=== PATIENT | male | born 1950 | race Caucasian/White ===

== ENCOUNTER 2018-10-24 11:29 | Inpatient (IN) ==
[2018-10-24] MEDS ORDERED: Ondansetron 4 MG/2 ML VIAL IVP PRN (13:12)
[2018-10-24] MEDS ORDERED: *HR* LORazepam 2 MG/ML VIAL IVP PRN (14:19)
--- NOTE | 2018-10-24 14:31 | Internal Med History&Physical ---
Date of Encounter: 10/24/18 Time of Encounter: 14:30 Internal Medicine - H&P: HPI Chief complaint: confusion Admitted From: Home Plans for Post Hospital Care: Home History of present illness: Mr. Schofield is a 67 year old male with history of HTN, and lewy body dementia, hypothyroidism, autonomic instability who was transferred to the hospital from [place] accompanied by his mother and sister due to confusion and unre sponsiveness. History was obtained from the patient and his family. Patient had already improved at [facility]. He used to leave in [place] with his daughter however he was visiting his mother when he became unresponsive in the morning. His mother felt that he was warm however she did not check his temperature. She also noticed decreased oral intake over the past few days. He has fluctuation in his cognition as per the mother and the sister. Patient was recently hospitalized due to multiple falls and was recently discharged from rehabilitation. He denied any chest pain, shortness of breath or palpitation. He has no fever, chills or night sweats. He denied any dysuria, hematuria or polyuria. He is to follow with urology, cardiology and neurology at his home town. At [place], Patient was hypertensive but HDS. Afebrile. His blood work revealed leukocytosis of 11.3, Cr 1.8, normal lactic acid, calcium 10.4, troponin 0.05. UA was positive for WBC but negative for leukocyte esterase and urine nitrates. Chest x-ray was negative for acute abnormality. Past Med Surg Social Fam HX - Past Medical History Medical history: arthritis, dementia, hypertension, thyroid disease, other Additional medical history: PARKINSONS, Lewy body dementia Psychiatric history: anxiety - Past Surgical History Additional surgical history: rt and lt knee replacements - Social History Smoking Status: Never smoker Smokeless Tobacco Status: No Alcohol use: none Drug use: none - Family History Father Living Status: Cause of : [place] Hx Family Cardiac Disorders: Yes ([place]) Hx Family Respiratory Disorders: Yes (COPD) Mother Living Status: Still Living Hx Family Cardiac Disorders: Yes (CAD, stenosis) - Additional Family History Additional family history: Reviewed and noncontributory Internal Medicine - H&P: Meds Calcium Carbonate/Vitamin D3 [Calcium 500 + Vit D 200 Caplet] 1 each PO DAILY 10/29/17 [History] Levothyroxine [Synthroid] 125 mcg PO DAILY 10/29/17 [History] Lisinopril [Zestril] 5 mg PO DAILY 10/29/17 [History] Memantine [Namenda] 10 mg PO DAILY 10/29/17 [History] Tamsulosin HCl [Flomax] 0.4 mg PO DAILY 10/29/17 [History] Loratadine [Claritin] 10 mg PO DAILY 10/24/18 [History] Melatonin [Melatin] 3 mg PO HS 10/24/18 [History] Quetiapine Fumarate [SEROquel] 25 mg PO HS 10/24/18 [History] Allergy/AdvReac Type Severity Reaction Status Date / Time codeine Allergy Hives Verified 10/24/18 08:59 oxycodone Allergy Hives Verified 10/24/18 08:59 pentazocine [From Talwin] Allergy Hives Verified 10/24/18 08:59 All Systems PM: A 10-system review of systems was performed and is negative for pertinent findings except as documented above in the HPI. - Constitutional Vitals: Temp Pulse Resp BP Pulse Ox 97.8 F 69 19 182/86 97 10/24/18 13:30 10/24/18 13:30 10/24/18 13:30 10/24/18 13:30 10/24/18 13:30 Exam: General: Patient is alert, oriented 2, no distress. Head: Atraumatic, normal inspection, Eye: EOMI, PERRLA, no scleral icterus noted. ENT: Mucous membranes moist. Neck: Normal inspection, Respiratory: No respiratory distress, rhonchi, or wheezes noted. Cardiovascular: Regular rate and regular rhythm, S1 and S2 audible. No murmurs, rubs, or gallops. GI: Soft, nondistended, normal bowel sounds. Extremities:No joint swelling, pedal edema, or tenderness noted. Neurological: Alert, oriented 2, no asterxis, abnormal finger to nose exam. myclonus noted. Psychiatric: normal affect, normal mood. Skin: Dry, intact, warm. Normal color. No rashes. Internal Med - H&P Results - EKG Data -: EKG Interpreted by Myself EKG shows normal: sinus rhythm Rate: normal - EKG Data Prior EKG available for review: yes When compared to previous EKG: there is no significant change - Assessment and Plan (1) Delirium due to general medical condition Current Visit: Yes Status: Acute (2) VI (acute kidney injury) Current Visit: Yes Status: Acute (3) HTN (hypertension) Current Visit: Yes Status: Chronic Qualifiers: Hypertension type: essential hypertension Qualified Code(s): I10 - Essential (primary) hypertension (4) Lewy body dementia Current Visit: Yes Status: Chronic Qualifiers: Dementia behavioral disturbance: without behavioral disturbance Qualified Code(s): G31.83 - Dementia with Lewy bodies; F02.80 - Dementia in other diseases classified elsewhere without behavioral disturbance (5) Hypothyroidism Current Visit: Yes Status: Chronic Qualifiers: Hypothyroidism type: unspecified Qualified Code(s): E03.9 - Hypothyroidism, unspecified (6) Autonomic instability Current Visit: Yes Status: Chronic - Summary of Assessment and Plan Summary of Assessment and Plan: Mr. Schofield is a 67 year old male with history of HTN, and lewy body dementia, hypothyroidism, autonomic instability who was transferred to the hospital from [place] accompanied by his mother and sister due to confusion and unresponsiveness. Encephalopathy: Already improved - DD: Likely related to underlying lewy body dementia and its cognition fluctuation. Would rule out infectious causes with urine and blood cultures. Consult neurology. MRI of the brain ordered. TSH is normal. lewy body dementia: Diagnosed 3 years ago, is to follow with a neurologist at [facility]. Continue memantine and add Exelon Autonomic instability: as per the family, his Bp is high when lay flat and low when sitting, likely related to lewy dementia. Will D/w with neurology adding florinef. HTN: will hold lisinopril and start norvasc. VI: Unsure what is Cr bl is, check CPK, hold lisinopril, check BMP tomorrow. Continue IVF. Troponin elevation: No clear history of heart disease, check echo, consult cardio, trend troponin until peaks. Patient is chest pain free. Hypothyroidism: Continue Levothyroxine. DVT ppx: SC heparin. - Time Spent With Patient Total time spent is greater than 50% in coordination of care (as documented) at patient's floor/unit and/or counseling patient:
[2018-10-24 14:45] LABS: Basophils # 0.1 K/mcL (0.0-0.2); Basophils % 0.7 %; Eosinophils # 0.1 K/mcL (0.0-0.6); Hematocrit 37.5 % (37.5-50.1); Hemoglobin 12.3 g/dL (12.9-16.9); Immature Granulocytes % 0.4 % (0-4); Lymphocytes # 1.8 K/mcL (0.6-4.6); Lymphocytes % 18.1 %; Mean Corpuscular HGB Conc 32.8 g/dL (31.6-35.5); Mean Corpuscular Hemoglobin 29.4 pg (28.0-33.3); Mean Corpuscular Volume 89.7 fL (83.0-100.0); Mean Platelet Volume 10.2 fL (9.4-12.4); Monocytes # 1.2 K/mcL (0.0-1.3); Monocytes % 11.7 %; Neutrophils # 6.9 K/mcL (1.6-8.9); Platelet Count 200 K/mcL (140-400); Red Blood Count 4.18 M/mcL (4.19-5.50); Red Cell Distribution Width 13.2 % (11.5-14.5); Segmented Neutrophils % 68.1 %; White Blood Count 10.1 K/mcL (4.3-11.1)
[2018-10-24 14:59] LABS: Calcium 10.6 mg/dL (8.6-10.3); Potassium 3.9 mEq/L (3.5-5.1)
[2018-10-24 15:15] LABS: Triiodothyronine (T3) Free 2.65 pg/mL (2.50-3.90)
[2018-10-24] MEDS: 0.9 % Sodium Chloride 1,000 ML IVC SCH (15:16)
[2018-10-24] MEDS ORDERED: *HR* Heparin 5,000 UNIT/ML VIAL SQ SCH (18:00)
[2018-10-24] MEDS: Rivastigmine Tartrate (oral) 1.5 MG CAPSULE PO SCH (21:03)
[2018-10-24] MEDS: Melatonin 3 MG TABLET PO SCH (21:03)
[2018-10-25] MEDS ORDERED: *HR* Heparin 5,000 UNIT/ML VIAL IVP PRN ×2 (02:24)
[2018-10-25] MEDS: Heparin 25,000 UNIT/250 ML D5W 25,000 UNIT/250 ML IV.SOLN IVC SCH (03:00)
[2018-10-25 03:37] LABS: Hematocrit 35.7 % (37.5-50.1); Hemoglobin 11.7 g/dL (12.9-16.9); Mean Corpuscular HGB Conc 32.8 g/dL (31.6-35.5); Mean Corpuscular Hemoglobin 29.6 pg (28.0-33.3); Mean Corpuscular Volume 90.4 fL (83.0-100.0); Mean Platelet Volume 10.3 fL (9.4-12.4); Platelet Count 181 K/mcL (140-400); Red Blood Count 3.95 M/mcL (4.19-5.50)
[2018-10-25 03:42] LABS: BUN/Creatinine Ratio 23 (6-26); Blood Urea Nitrogen 27 mg/dL (8-23); Calcium 9.4 mg/dL (8.6-10.3); Carbon Dioxide 27 mEq/L (23-29); Chloride 105 mEq/L (98-107); Creatine Kinase 197 Units/L (30-223); Glucose 102 mg/dL (70-105); Osmolality,Calculated 295 (280-300); Potassium 3.7 mEq/L (3.5-5.1); Sodium 140 mEq/L (136-145); eGFR For African Americans > 60 (> 60); eGFR For Non-African Americans > 60 (> 60)
[2018-10-25 03:43] LABS: Albumin 3.8 g/dL (3.5-5.7); Albumin/Globulin Ratio 1.7 (1.1-2.2); Bilirubin,Direct 0.2 mg/dL (0.0-0.2); Bilirubin,Indirect 0.8 mg/dL (0.0-1.2); Globulin 2.3 g/dL (2.4-3.5); Total Protein 6.1 g/dL (6.4-8.9)
[2018-10-25 03:44] LABS: INR 1.2; Prothrombin Time 13.8 Seconds (9.4-12.1)
[2018-10-25 05:10] LABS: Bilirubin,Urine Negative (Negative); Blood,Urine Negative (Negative); Clarity,Urine Clear (Clear); Color,Urine Yellow (Yellow); Glucose,Urine (UA) Normal (Normal); Ketones,Urine Negative (Negative); Leukocyte Esterase,Urine Negative (Negative); Nitrite,Urine Negative (Negative); Protein,Urine Negative (Neg-Trace); Specific Gravity,Urine 1.018 (1.010-1.025); Urobilinogen,Urine Normal (Normal)
[2018-10-25] MEDS: 0.9 % Sodium Chloride 1,000 ML IVC SCH (05:38)
[2018-10-25] MEDS: Loratadine 10 MG TABLET PO SCH (09:55)
[2018-10-25] MEDS: Rivastigmine Tartrate (oral) 1.5 MG CAPSULE PO SCH ×2 (09:55→20:13)
[2018-10-25] MEDS: Aspirin 81 MG TAB.CHEW PO SCH (09:55)
--- NOTE | 2018-10-25 11:34 | Internal Med Progress Note ---
Hospitalist Progress Note - Encounter Date of Encounter: 10/25/18 Time of Encounter: 09:25 - Subjective Interval History: No major events overnight. Patient was seen this a.m. He denied fever, chills or night sweats. He has no nausea, vomiting or abdominal pain. Patient denied chest pain, shortness of breath or palpitation. - Exam Vitals: Temp Pulse Resp BP Pulse Ox 97.9 F 59 16 149/99 97 10/25/18 07:14 10/25/18 07:14 10/25/18 07:14 10/25/18 07:14 10/25/18 07:14 Exam: General: Patient is alert, oriented 2, no distress. Head: Atraumatic, normal inspection, Eye: EOMI, PERRLA, no scleral icterus noted. ENT: Mucous membranes moist. Neck: Normal inspection, Respiratory: No respiratory distress, rhonchi, or wheezes noted. Cardiovascular: Regular rate and regular rhythm, S1 and S2 audible. No murmurs, rubs, or gallops. GI: Soft, nondistended, normal bowel sounds. Extremities:No joint swelling, pedal edema, or tenderness noted. Neurological: Alert, oriented 2, no asterxis, abnormal finger to nose exam. myclonus noted. Psychiatric: normal affect, normal mood. Skin: Dry, intact, warm. Normal color. No rashes. - Assessment and Plan (1) Delirium due to general medical condition Current Visit: Yes Status: Resolved (2) VI (acute kidney injury) Current Visit: Yes Status: Resolved (3) HTN (hypertension) Current Visit: Yes Status: Chronic (4) Lewy body dementia Current Visit: Yes Status: Chronic (5) Hypothyroidism Current Visit: Yes Status: Chronic (6) Autonomic instability Current Visit: Yes Status: Chronic (7) NSTEMI (non-ST elevated myocardial infarction) Current Visit: Yes Status: Acute - Summary of Assessment and Plan Summary of Assessment and Plan: Mr. Schofield is a 67 year old male with history of HTN, and lewy body dementia, hypothyroidism, autonomic instability who was transferred to the hospital from [place] accompanied by his mother and sister due to confusion and unresponsiveness. NSTEMI: Troponin peaked to 0.07 with flat pattern, stop trending. On heparin gtt, added aspirin and lipitor. EKG no ischemic changes, Echo is pending. cardiology is consulted. Encephalopathy: Already improved - DD: Likely related to underlying lewy body dementia and its cognition fluctuation. UA,UCx and BCx are negative so far. Consult neurology. MRI of the brain is -. TSH is normal. lewy body dementia: Diagnosed 3 years ago, is to follow with a neurologist at home [facility]. Continue memantine and added Exelon Autonomic instability: as per the family, his Bp is high when lay flat and low when sitting, likely related to lewy dementia. Will D/w with neurology adding florinef. HTN: will hold lisinopril and start norvasc. VI: resolved, Stop IVF. Hypothyroidism: Continue Levothyroxine. DVT ppx: heparin gtt. - Time Spent with Patient Total time spent is greater than 50% in coordination of care (as documented) at patient's floor/unit and/or counseling patient: Plan of Care Discussed with: family Internal Medicine: Result - Labs CBC & Chem 7: 10/25/18 03:06 10/25/18 03:06 Labs: Short CBC 10/24/18 10/25/18 Range/Units 14:16 03:06 WBC 10.1 8.0 (4.3-11.1) K/mcL Hgb 12.3 L 11.7 L (12.9-16.9) g/dL Hct 37.5 35.7 L (37.5-50.1) % Plt Count 200 181 (140-400) K/mcL Neutrophils # 6.9 (1.6-8.9) K/mcL BMP 10/24/18 10/25/18 14:16 03:06 Sodium 140 140 Potassium 3.9 3.7 Chloride 106 105 Carbon Dioxide 28 27 BUN 31 H 27 H Creatinine 1.61 H 1.17 Glucose 108 H 102 Calcium 10.6 H 9.4 Cardiac Enzymes 10/24/18 10/24/18 10/25/18 Range/Units 14:16 22:20 03:06 Troponin I 0.06 H* 0.07 H* 0.07 H* (< 0.04) ng/mL 10/25/18 Range/Units 08:52 Troponin I 0.07 H* (< 0.04) ng/mL Liver Function 10/25/18 Range/Units 03:06 Total Bilirubin 1.0 (0.3-1.0) mg/dL Direct Bilirubin 0.2 (0.0-0.2) mg/dL AST 15 (13-39) Units/L ALT 13 (7-52) Units/L Alkaline Phosphatase 47 (34-104) Units/L Albumin 3.8 (3.5-5.7) g/dL Urine 10/24/18 Range/Units 04:45 Urine Color Yellow (Yellow) Urine Clarity Clear (Clear) Urine pH 6.0 (5.0-8.0) pH Units Ur Specific [place] 1.018 (1.010-1.025) Urine Protein Negative (Neg-Trace) mg/dL Urine Glucose (UA) Normal (Normal) mg/dL - ABG Interpretation ABG results: PT/INR, D-dimer PT 13.8 Seconds (9.4-12.1) H 10/25/18 03:06 - Impressions Impressions Brain MRI 10/24/18 14:19 IMPRESSION: No acute intracranial abnormality visualized. D/ / Avi Ortega MD / Avi Ortega MD Interpreting Provider: Avi Ortega MD Consult Discharge Plan - Plan Referrals: NONE,PCP [Primary Care Provider] - (3) HTN (hypertension) Qualifiers: Hypertension type: essential hypertension Qualified Code(s): I10 - Essential (primary) hypertension (4) Lewy body dementia Qualifiers: Dementia behavioral disturbance: without behavioral disturbance Qualified Code(s): G31.83 - Dementia with Lewy bodies; F02.80 - Dementia in other diseases classified elsewhere without behavioral disturbance (5) Hypothyroidism Qualifiers: Hypothyroidism type: unspecified Qualified Code(s): E03.9 - Hypothyroidism, unspecified
--- NOTE | 2018-10-25 12:35 | Cardiology Consult Note ---
Date of Encounter: 10/25/18 Time of Encounter: 12:32 Assessment and Plan (1) NSTEMI (non-ST elevated myocardial infarction) Current Visit: Yes Status: Acute Likely non-ischemic elevation of troponins which are adynamic. Echocardiogram unremarkable with preserved ejection fraction and no regional wall motion abnormalities. History of dizziness and lightheadedness likely secondary to dehydration reflected on his electrolytes and prerenal azotemia. Records of recent hospitalization for multiple falls will be obtained by his daughter. If no ischemic workup was performed would recommend chemical stress test prior to discharge as patient is a poor historian Discussion w patient/family: The assessment and plan as outlined above was discussed with the patient and/or family members who expressed understanding and agreement. All questions were answered. Thank you for involving us in the care of your patient. Please call with any questions. History of Present Illness Consult date: 10/25/18 Chief complaint: Dizzy and lightheaded History of present illness: Mr. 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 Patient was here visiting experienced dizziness and lightheadedness mostly upon standing found to have renal insufficiency likely prerenal indicating dehydration. Patient's troponins are flat and adynamic with a peak of 0.07 likely nonischemic in etiology. With his multiple risk factors and echocardiogram was obtained which showed a preserved ejection fraction with no major valvular abnormalities. Family states patient had cardiac workup possibly an ischemic workup records will be obtained for review. If patient has not had a chemical stress test will obtain prior to discharge Past Med Surg Social Fam HX - Past Medical History Medical history: arthritis, dementia, hypertension, thyroid disease, other Additional medical history: PARKINSONS, Lewy body dementia Psychiatric history: anxiety - Past Surgical History Additional surgical history: rt and lt knee replacements - Social History Smoking Status: Never smoker Smokeless Tobacco Status: No Alcohol use: none Drug use: none - Family History Father Living Status: Cause of : [place] Hx Family Cardiac Disorders: Yes ([place]) Hx Family Respiratory Disorders: Yes (COPD) Mother Living Status: Still Living Hx Family Cardiac Disorders: Yes (CAD, stenosis) Medications and Allergies Calcium Carbonate/Vitamin D3 [Calcium 500 + Vit D 200 Caplet] 1 tab PO DAILY 10/29/17 [History] Levothyroxine [Synthroid] 125 mcg PO QAM 10/29/17 [History] Lisinopril [Zestril] 5 mg PO DAILY 10/29/17 [History] Memantine [Namenda] 10 mg PO DAILY 10/29/17 [History] Tamsulosin HCl [Flomax] 0.4 mg PO DAILY 10/29/17 [History] Loratadine [Claritin] 10 mg PO DAILY 10/24/18 [History] Melatonin [Melatin] 3 mg PO HS 10/24/18 [History] Allergy/AdvReac Type Severity Reaction Status Date / Time codeine Allergy Hives Verified 10/24/18 08:59 oxycodone Allergy Hives Verified 10/24/18 08:59 pentazocine [From Talwin] Allergy Hives Verified 10/24/18 08:59 All Systems Review: The remainder of the systems were reviewed and are negative Physical Examination Vital Signs, Last 4 Hours Temp Pulse Resp BP Pulse Ox 10/25/18 12:16 98.7 F 83 16 181/67 95 Results 10/25/18 03:06 10/25/18 03:06 Lab Results 10/24/18 10/24/18 10/24/18 14:16 14:16 14:16 WBC 10.1 Hgb 12.3 L Hct 37.5 Plt Count 200 INR Sodium 140 Potassium 3.9 Chloride 106 Carbon Dioxide 28 BUN 31 H Creatinine 1.61 H Glucose 108 H Calcium 10.6 H Total Bilirubin AST ALT Alkaline Phosphatase Troponin I 0.06 H* 10/24/18 10/25/18 10/25/18 22:20 03:06 03:06 WBC Hgb Hct Plt Count INR Sodium 140 Potassium 3.7 Chloride 105 Carbon Dioxide 27 BUN 27 H Creatinine 1.17 Glucose 102 Calcium 9.4 Total Bilirubin 1.0 AST 15 ALT 13 Alkaline Phosphatase 47 Troponin I 0.07 H* 10/25/18 10/25/18 10/25/18 03:06 03:06 03:06 WBC 8.0 Hgb 11.7 L Hct 35.7 L Plt Count 181 INR 1.2 Sodium Potassium Chloride Carbon Dioxide BUN Creatinine Glucose Calcium Total Bilirubin AST ALT Alkaline Phosphatase Troponin I 0.07 H* 10/25/18 08:52 WBC Hgb Hct Plt Count INR Sodium Potassium Chloride Carbon Dioxide BUN Creatinine Glucose Calcium Total Bilirubin AST ALT Alkaline Phosphatase Troponin I 0.07 H* Consult Discharge Plan - Plan Referrals: NONE,PCP [Primary Care Provider] -
[2018-10-25] MEDS: amLODIPine 5 MG TABLET PO SCH (15:05)
--- NOTE | 2018-10-25 15:53 | Neurology - Consult Note ---
Date of Encounter: 10/25/18 Time of Encounter: 15:46 Assessment and Plan (1) Lewy body dementia Current Visit: Yes Status: Chronic This patient does seem to have elements in his examination and history that could be consistent with Lewy body dementia. He has had hallucinations and symptoms of parkinsonism for quite some time now. As much of the family recalls the hallucinations seated the actual movement disorder. Also it is not uncommon for individuals with neurodegenerative disorders to have good days and bad days. They can frequently have flareups when they are outside of the normal environment. Such could be the case this weekend. He seems to be back at his normal baseline now. Therefore less likely dealing with an acute underlying m edical derangement. It is doubtful that we are dealing with partial seizure activity. MRI scan of the brain revealed no evidence of acute ischemia. Perhaps medication effect may have been to blame. However this juncture he is neurologically stable. I would simply have him follow-up with his existing neurologist in [place]. I will reevaluate your request. Qualifiers: Dementia behavioral disturbance: without behavioral disturbance Qualified Code(s): G31.83 - Dementia with Lewy bodies; F02.80 - Dementia in other diseases classified elsewhere without behavioral disturbance History of Present Illness HPI: Mr. Schofield is a 67 year old male with a prior diagnosis of Lewy body dementia who is being seen in [facility] for neurologic consultation secondary to confusion and unresponsiveness. Apparently he and other family members were not here in the [place] area visiting with another relative. Patient sometimes becomes hypotensive and presyncopal whenever he stands from a sitting position. He has intermittent tremors, as well as hallucinations. Family members are present today, he is at his baseline currently however he does have fluctuations in his mental status almost daily. He was diagnosed with Lewy body dementia by a neurologist in [facility]. Apparently he lives with his mother who helps to organize his medications. Multiple family members are present today. They are very close knit. Past Med Surg Social Fam HX - Past Medical History Medical history: arthritis, dementia, hypertension, thyroid disease, other Additional medical history: PARKINSONS, Lewy body dementia Psychiatric history: anxiety - Past Surgical History Additional surgical history: rt and lt knee replacements - Social History Smoking Status: Never smoker Smokeless Tobacco Status: No Alcohol use: none Drug use: none - Family History Father Living Status: Cause of : [place] Hx Family Cardiac Disorders: Yes ([place]) Hx Family Respiratory Disorders: Yes (COPD) Mother Living Status: Still Living Hx Family Cardiac Disorders: Yes (CAD, stenosis) Medications and Allergies Calcium Carbonate/Vitamin D3 [Calcium 500 + Vit D 200 Caplet] 1 tab PO DAILY 10/29/17 [History] Levothyroxine [Synthroid] 125 mcg PO QAM 10/29/17 [History] Lisinopril [Zestril] 5 mg PO DAILY 10/29/17 [History] Memantine [Namenda] 10 mg PO DAILY 10/29/17 [History] Tamsulosin HCl [Flomax] 0.4 mg PO DAILY 10/29/17 [History] Loratadine [Claritin] 10 mg PO DAILY 10/24/18 [History] Melatonin [Melatin] 3 mg PO HS 10/24/18 [History] Allergy/AdvReac Type Severity Reaction Status Date / Time codeine Allergy Hives Verified 10/24/18 08:59 oxycodone Allergy Hives Verified 10/24/18 08:59 pentazocine [From Talwin] Allergy Hives Verified 10/24/18 08:59 All Systems: The remainder of the systems were reviewed and are negative Review of Systems: The balance of the systems review is negative. Physical Examination - Vital Signs Vital Signs: Initial Vital Signs Temp Pulse Resp BP Pulse Ox 97.8 F 69 19 182/86 97 10/24/18 13:30 10/24/18 13:30 10/24/18 13:30 10/24/18 13:30 10/24/18 13:30 - Exam Exam: General Examination: *CONSTITUTIONAL: normal *GENERAL APPEARANCE OF PATIENT appears healthy and well groomed *EYES: pupils equal, round, reactive to light and accommodation, conjunctiva clear without masses or ulcerations, fundi normal. *CARDIOVASCULAR no peripheral edema, distal temperature normal, dorsalis pedis pulses normal. Refer to vital signs Musculoskeletal: *GAIT AND STATION slow and shuffling, with assistance. His gait is very unstable. He appears parkinsonian. 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 *MUSCLE TONE IN THE UPPER AND LOWER EXTREMITIES he does have a slight bit of cogwheeling of both upper extremities. I do not however identify a resting tremor today. He does have mask facies. Neurological: *ORIENTATION to place, day, month, year. *RECURRENT AND REMOTE MEMORY impaired *ATTENTION AND CONCENTRATION are normal *LANGUAGE FUNCTION patient does have some slurred speech. *FUND OF KNOWLEDGE patient needs some help corroborating his history of present illness. *MENTAL attention span and concentration normal. *CN II optic fundi were normal, no papilledema noted. *CN III,IV, PERRLA extraocular eye movements were full, no nystagmus and no ptosis noted. *CN V shows normal sensation and jaw opens symmetrically. *CN VII shows normal facial movement symmetrically, upper and lower bilaterally. *CN VIII shows no significant hearing loss on examination in the office. *CN IX,,X palate elevated symmetrically and normal gag reflex was noted. *CN XI normal strength in the sternocleidomastoid muscles, symmetrical shoulder shrugging. *CN XII tongue protruded in the midline, with normal strength and movement. *SENSORY EXAMINATION pinprick sensation intact, and light touch(vibration sense). *REFLEXES: deep tendon reflexes were diminished throughout. *CEREBELLAR TESTING normal finger to nose. *PAIN LEVEL 0 Results - Laboratory Findings CBC and BMP: 10/25/18 03:06 10/25/18 03:06 Abnormal lab findings: Abnormal lab results RBC 3.95 M/mcL (4.19-5.50) L 10/25/18 03:06 Hgb 11.7 g/dL (12.9-16.9) L 10/25/18 03:06 Hct 35.7 % (37.5-50.1) L 10/25/18 03:06 PT 13.8 Seconds (9.4-12.1) H 10/25/18 03:06 Heparin Anti-Xa, Unfract 0.27 IU/mL (0.30-0.70) L 10/25/18 08:52 BUN 27 mg/dL (8-23) H 10/25/18 03:06 Creatinine 1.61 mg/dL (0.70-1.30) H 10/24/18 14:16 Est GFR ( Amer) 52 (> 60) L 10/24/18 14:16 Est GFR (Non-Af Amer) 43 (> 60) L 10/24/18 14:16 Glucose 108 mg/dL (70-105) H 10/24/18 14:16 Calcium 10.6 mg/dL (8.6-10.3) H 10/24/18 14:16 Creatine Kinase 235 Units/L (30-223) H 10/24/18 14:16 Troponin I 0.07 ng/mL (< 0.04) H* 10/25/18 08:52 Serum Total Protein 6.1 g/dL (6.4-8.9) L 10/25/18 03:06 Globulin 2.3 g/dL (2.4-3.5) L 10/25/18 03:06 Consult Discharge Plan - Plan Referrals: NONE,PCP [Primary Care Provider] -
[2018-10-25] MEDS: Melatonin 3 MG TABLET PO SCH (20:13)
[2018-10-26 00:18] LABS: Hematocrit 35.1 % (37.5-50.1); Hemoglobin 11.6 g/dL (12.9-16.9); Mean Corpuscular Hemoglobin 29.7 pg (28.0-33.3); Mean Corpuscular Volume 89.8 fL (83.0-100.0); Mean Platelet Volume 9.9 fL (9.4-12.4); Platelet Count 180 K/mcL (140-400); Red Blood Count 3.91 M/mcL (4.19-5.50); Red Cell Distribution Width 13.1 % (11.5-14.5); White Blood Count 8.9 K/mcL (4.3-11.1)
[2018-10-26] MEDS: Heparin 25,000 UNIT/250 ML D5W 25,000 UNIT/250 ML IV.SOLN IVC SCH (00:22)
[2018-10-26 00:36] LABS: BUN/Creatinine Ratio 17 (6-26); Blood Urea Nitrogen 20 mg/dL (8-23); Calcium 9.3 mg/dL (8.6-10.3); Carbon Dioxide 24 mEq/L (23-29); Chloride 108 mEq/L (98-107); Glucose 107 mg/dL (70-105); Osmolality,Calculated 295 (280-300); Potassium 3.7 mEq/L (3.5-5.1); Sodium 141 mEq/L (136-145); eGFR For African Americans > 60 (> 60); eGFR For Non-African Americans > 60 (> 60)
[2018-10-26] MEDS: Aspirin 81 MG TAB.CHEW PO SCH (08:07)
[2018-10-26] MEDS: Loratadine 10 MG TABLET PO SCH (08:08)
[2018-10-26] MEDS: amLODIPine 5 MG TABLET PO SCH (08:08)
[2018-10-26] MEDS: Rivastigmine Tartrate (oral) 1.5 MG CAPSULE PO SCH ×2 (08:08→20:55)
--- NOTE | 2018-10-26 09:46 | Neurology Progress Note ---
<Onesimo Tatum J - Last Filed: 10/26/18 14:02> Date of Encounter: 10/26/18 Time of Encounter: 09:41 Assessment and Plan (1) Lewy body dementia Current Visit: Yes Status: Chronic He remains stable clinically without any development of further neurological deficits However, overnight he did have persistent agitation and hallucinations Neurologically however, with the exception of parkinsonian features on exam there are no focal motor findings and no sensory loss As noted previously his symptoms to coincide with that which would be expected of Lewy body dementia We will continue with dementia workup with B12 and folate Increase Seroquel to 50 by mouth daily at bedtime F/U with primary neurologist in [place] Qualifiers: Dementia behavioral disturbance: without behavioral disturbance Qualified Code(s): G31.83 - Dementia with Lewy bodies; F02.80 - Dementia in other diseases classified elsewhere without behavioral disturbance Subjective Principal diagnosis: Dewey body dementia Interval history: Patient is being seen in follow-up today for evaluation of confusion and unresponsiveness as well as hallucinations. Patient has a prior diagnosis of Parkinson's and blue body dementia. The chart is reviewed, the patient was seen and examined at bedside today. Apparently, overnight the patient was having i ncreased hallucinations and confusion. Otherwise no new neurological symptoms reported. The family is at bedside and both the patient and family report that there concerned that his disease may be progressing. Additionally, there concerned that he may not be resting well overnight and wonder if this could be contributing to his condition. I discussed the possibility of such and her recommendations regarding future plan of care. Additionally, I discussed MRI of the brain findings. The patient and family verbalized understanding and denies any further questions. Objective - Constitutional Vitals: Temp Pulse Resp BP Pulse Ox 98.1 F 66 15 189/93 95 10/26/18 07:40 10/26/18 07:40 10/26/18 07:40 10/26/18 07:40 10/26/18 07:40 Exam: Exam: General Examination: *CONSTITUTIONAL: Alert to self, calm and cooperative *GENERAL APPEARANCE OF PATIENT appears healthy and well groomed, and appears stated age *EYES: pupils equal, round, reactive to light and accommodation, conjunctiva clear without masses or ulcerations, fundi normal. *CARDIOVASCULAR no peripheral edema, distal temperature normal, dorsalis pedis pulses normal. Refer to vital signs Musculoskeletal: *GAIT AND STATION defer to due to gait instability and bilateral leg weakness and recent history of falls *ASSESSMENT OF MUSCLE STRENGTH IN THE UPPER AND LOWER EXTREMITIES deltoid, bicep, tricep, sweetbread trimmer strength, hip flexors ,anterior tibialis, dorsoflexion of the foot 5/5 *MUSCLE TONE IN THE UPPER AND LOWER EXTREMITIES mild BUE cogwheeling, no resting tremor present, has masked faces Neurological: *ORIENTATION to place, day, month, year, family. *RECURRENT AND REMOTE MEMORY impaired and he is unable to provide detail of events surrounding admission *ATTENTION AND CONCENTRATION are normal, follows commands, no interruption to thought process *LANGUAGE FUNCTION patient does have some slurred speech. *FUND OF KNOWLEDGE patient needs some help corroborating his history of present illness and looks to family for assistance. *MENTAL attention span and concentration normal. *CN II optic fundi were normal, no papilledema noted. *CN III,IV, PERRLA extraocular eye movements were full, no nystagmus and no ptosis noted. *CN V shows normal sensation and jaw opens symmetrically. *CN VII shows normal facial movement symmetrically, upper and lower bilaterally. *CN VIII shows no significant hearing loss on examination in the office. *CN IX,,X palate elevated symmetrically and normal gag reflex was noted. *CN XI normal strength in the sternocleidomastoid muscles, symmetrical shoulder shrugging. *CN XII tongue protruded in the midline, with normal strength and movement. *SENSORY EXAMINATION pinprick sensation intact, and light touch *REFLEXES: deep tendon reflexes were diminished throughout. *CEREBELLAR TESTING normal finger to nose but dysmetria noted in b/l [id number] testing. *PAIN LEVEL 0 Results - Laboratory Findings CBC and BMP: 10/26/18 00:06 10/26/18 00:06 Abnormal lab findings: Abnormal lab results RBC 3.91 M/mcL (4.19-5.50) L 10/26/18 00:06 Hgb 11.6 g/dL (12.9-16.9) L 10/26/18 00:06 Hct 35.1 % (37.5-50.1) L 10/26/18 00:06 PT 13.8 Seconds (9.4-12.1) H 10/25/18 03:06 Heparin Anti-Xa, Unfract 0.27 IU/mL (0.30-0.70) L 10/25/18 08:52 Chloride 108 mEq/L (98-107) H 10/26/18 00:06 BUN 27 mg/dL (8-23) H 10/25/18 03:06 Creatinine 1.61 mg/dL (0.70-1.30) H 10/24/18 14:16 Est GFR ( Amer) 52 (> 60) L 10/24/18 14:16 Est GFR (Non-Af Amer) 43 (> 60) L 10/24/18 14:16 Glucose 107 mg/dL (70-105) H 10/26/18 00:06 Calcium 10.6 mg/dL (8.6-10.3) H 10/24/18 14:16 Creatine Kinase 235 Units/L (30-223) H 10/24/18 14:16 Troponin I 0.07 ng/mL (< 0.04) H* 10/25/18 08:52 Serum Total Protein 6.1 g/dL (6.4-8.9) L 10/25/18 03:06 Globulin 2.3 g/dL (2.4-3.5) L 10/25/18 03:06 Consult Discharge Plan - Plan Referrals: NONE,PCP [Primary Care Provider] - <Fracisco Dinero - Last Filed: 10/26/18 17:33> Date of Encounter: 10/26/18 Assessment and Plan (1) Lewy body dementia Current Visit: Yes Status: Chronic I have personally performed a [id number] assessment of the patient and have reviewed the PA/CHANNEL WORKER note. My impressions are as follows: I agree with the assessment and plan as documented above. Visual hallucinations, and agitation are common in Lewy body dementia. I agree with the above and would maximize the subacromial by titrating up by 25 mg a so per week if necessary. Ultimately might also consider adding Aricept and Namenda. I will reevaluate him at your request. I agree that he should follow up with his primary neurologist in [facility] as he was here visiting family. Qualifiers: Dementia behavioral disturbance: without behavioral disturbance Qualified Code(s): G31.83 - Dementia with Lewy bodies; F02.80 - Dementia in other diseases classified elsewhere without behavioral disturbance Subjective Interval history: The chart was reviewed, the patient was seen and examined independently. I agree with the subjective documentation as stated above. I did speak with family in the room. I concur with the above. Objective - Constitutional Vitals: Temp Pulse Resp BP Pulse Ox 97.7 F 68 16 159/87 94 10/26/18 11:42 10/26/18 11:42 10/26/18 11:42 10/26/18 11:42 10/26/18 11:42 Exam: I have personally performed a [id number] assessment of the patient and have reviewed the PA/CHANNEL WORKER note. My impressions are as follows: I agree with her neurologic examination as documented above. Results - Laboratory Findings CBC and BMP: 10/26/18 00:06 10/26/18 00:06 Abnormal lab findings: Abnormal lab results RBC 3.91 M/mcL (4.19-5.50) L 10/26/18 00:06 Hgb 11.6 g/dL (12.9-16.9) L 10/26/18 00:06 Hct 35.1 % (37.5-50.1) L 10/26/18 00:06 PT 13.8 Seconds (9.4-12.1) H 10/25/18 03:06 Heparin Anti-Xa, Unfract 0.27 IU/mL (0.30-0.70) L 10/25/18 08:52 Chloride 108 mEq/L (98-107) H 10/26/18 00:06 BUN 27 mg/dL (8-23) H 10/25/18 03:06 Creatinine 1.61 mg/dL (0.70-1.30) H 10/24/18 14:16 Est GFR ( Amer) 52 (> 60) L 10/24/18 14:16 Est GFR (Non-Af Amer) 43 (> 60) L 10/24/18 14:16 Glucose 107 mg/dL (70-105) H 10/26/18 00:06 Calcium 10.6 mg/dL (8.6-10.3) H 10/24/18 14:16 Creatine Kinase 235 Units/L (30-223) H 10/24/18 14:16 Troponin I 0.07 ng/mL (< 0.04) H* 10/25/18 08:52 Serum Total Protein 6.1 g/dL (6.4-8.9) L 10/25/18 03:06 Globulin 2.3 g/dL (2.4-3.5) L 10/25/18 03:06
--- NOTE | 2018-10-26 10:25 | Electrocardiograph Report ---
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
[2018-10-26 11:26] LABS: Folate 12.1 ng/mL (3.0-16.0)
--- NOTE | 2018-10-26 12:17 | Internal Med Progress Note ---
Hospitalist Progress Note - Encounter Date of Encounter: 10/26/18 Time of Encounter: 10:25 - Subjective Interval History: Patient was seen this morning. He was agitated and combative overnight. He was calm, alert and oriented this morning. He denied chest pain, shortness of breath or palpitation. - Exam Vitals: Temp Pulse Resp BP Pulse Ox 97.7 F 68 16 159/87 94 10/26/18 11:42 10/26/18 11:42 10/26/18 11:42 10/26/18 11:42 10/26/18 11:42 Exam: General: Patient is alert, oriented 3, no distress. Head: Atraumatic, normal inspection, Eye: EOMI, PERRLA, no scleral icterus noted. ENT: Mucous membranes moist. Neck: Normal inspection, Respiratory: No respiratory distress, rhonchi, or wheezes noted. Cardiovascular: Regular rate and regular rhythm, S1 and S2 audible. No murmurs, rubs, or gallops. GI: Soft, nondistended, normal bowel sounds. Extremities:No joint swelling, pedal edema, or tenderness noted. Neurological: Alert, oriented 3, no asterxis, abnormal finger to nose exam. myclonus noted. Psychiatric: normal affect, normal mood. Skin: Dry, intact, warm. Normal color. No rashes. - Assessment and Plan (1) Delirium due to general medical condition Current Visit: Yes Status: Resolved (2) VI (acute kidney injury) Current Visit: Yes Status: Resolved (3) HTN (hypertension) Current Visit: Yes Status: Chronic (4) Lewy body dementia Current Visit: Yes Status: Chronic (5) Hypothyroidism Current Visit: Yes Status: Chronic (6) Autonomic instability Current Visit: Yes Status: Chronic (7) NSTEMI (non-ST elevated myocardial infarction) Current Visit: Yes Status: Resolved - Summary of Assessment and Plan Summary of Assessment and Plan: Mr. Schofield is a 67 year old male with history of HTN, and lewy body dementia, hypothyroidism, autonomic instability who was transferred to the hospital from [place] accompanied by his mother and sister due to confusion and unresponsiveness. NSTEMI: Troponin peaked to 0.07 with flat pattern, chronic elevation as per previous records. DC heparin gtt, continue aspirin and lipitor. EKG no ischemic changes, Echo EF 55-60, mild TR, mild pHTN. cardiology is consulted. Encephalopathy: Already improved - DD: Likely related to underlying lewy body dementia and its cognition fluctuation. UA,UCx and BCx are negative so far. Consult neurology. MRI of the brain is -. TSH is normal. lewy body dementia: Diagnosed 3 years ago, is to follow with a neurologist at [facility]. Continue memantine and added Exelon Autonomic instability: as per the family, his Bp is high when lay flat and low when sitting, likely related to lewy dementia. HTN: will hold lisinopril and start norvasc. VI: resolved, Stop IVF. Hypothyroidism: Continue Levothyroxine. DVT ppx: heparin gtt. - Time Spent with Patient Total time spent is greater than 50% in coordination of care (as documented) at patient's floor/unit and/or counseling patient: Plan of Care Discussed with: patient Internal Medicine: Result - Labs CBC & Chem 7: 10/26/18 00:06 10/26/18 00:06 Labs: Short CBC 10/26/18 Range/Units 00:06 WBC 8.9 (4.3-11.1) K/mcL Hgb 11.6 L (12.9-16.9) g/dL Hct 35.1 L (37.5-50.1) % Plt Count 180 (140-400) K/mcL BMP 10/26/18 00:06 Sodium 141 Potassium 3.7 Chloride 108 H Carbon Dioxide 24 BUN 20 Creatinine 1.17 Glucose 107 H Calcium 9.3 - ABG Interpretation ABG results: PT/INR, D-dimer PT 13.8 Seconds (9.4-12.1) H 10/25/18 03:06 - Impressions Impressions Echocardiogram 10/24/18 14:41 Impressions: LVEF 55-60%. Normal LV chamber size, wall thickness and function. Indeterminate diastolic function. Normal right ventricular structure and function. Mild tricuspid regurgitation. Mild pulmonary hypertension. Estimated RVSP is 40 mmHg. Left Ventricular Wall Motion: Rest Echo Findings All wall segments showed normal motion. Findings: Study Quality * Technically adequate exam. ECG Findings * Normal sinus rhythm. Left Ventricle * LVEF 55-60%. * Normal LV chamber size, wall thickness and function. * Indeterminate diastolic function. Right Ventricle * Normal right ventricular structure and function. Left Atrium * Moderate to severely dilated left atrium. Right Atrium * Mildly dilated right atrium. Interatrial Septum * No evidence of PFO by color Doppler. Aortic Valve * Trileaflet aortic valve. * Mildly sclerotic aortic valve leaflets. * Trace aortic regurgitation. * No aortic stenosis. Mitral Valve * Normal mitral valve structure and function. * No mitral stenosis. * Trace mitral regurgitation. Tricuspid Valve * Normal tricuspid valve structure. * Mild tricuspid regurgitation. * Mild pulmonary hypertension. * Estimated RVSP is 40 mmHg. * Estimated RA pressure is 3 mmHg. Pulmonic Valve * Normal pulmonic valve structure and function. * Trace pulmonic regurgitation. Aorta * Normally sized aortic root. Pericardium * The pericardium appears normal. IVC * Normal IVC dimensions and inspiratory collapse. Pulmonary Artery * Normal visualized portions of the main pulmonary artery. Consult Discharge Plan - Plan Referrals: NONE,PCP [Primary Care Provider] - (3) HTN (hypertension) Qualifiers: Hypertension type: essential hypertension Qualified Code(s): I10 - Essential (primary) hypertension (4) Lewy body dementia Qualifiers: Dementia behavioral disturbance: without behavioral disturbance Qualified Code(s): G31.83 - Dementia with Lewy bodies; F02.80 - Dementia in other diseases classified elsewhere without behavioral disturbance (5) Hypothyroidism Qualifiers: Hypothyroidism type: unspecified Qualified Code(s): E03.9 - Hypothyroidism, unspecified
--- NOTE | 2018-10-26 13:01 | Cardiology Progress Note ---
Date of Encounter: 10/26/18 Time of Encounter: 12:59 Assessment and Plan (1) Elevated troponin Current Visit: Yes Status: Acute Per cardiology: -Mild, flat, adynamic troponin in the setting of VI, dehydration. -Denies chest pain. -No acute ischemic ECG changes noted. -TTE with LVEF preserved, no wall motion abnormalities noted. -On asa, heparin drip. -Records reviewed from [facility] with stress test 2018 negative for ischemia or infarct. -Of note, troponins mildly elevated at [facility] also. -Demand ischemia, no cardiac rehab consult warranted. -OK to stop heparin drip. -Continue asa. Will add statin, BB. -Cardiology will sign off. Patient will follow in his home state, [place] Discussion w patient/family: The assessment and plan as outlined above was discussed with the patient and/or family members who expressed understanding and agreement. All questions were answered. Thank you for involving us in the care of your patient. Please call with any questions. Discussed and reviewed with Subjective Principal diagnosis: Dehydration, VI Interval history: Patient denies chest pain. Multiple family members in room. Objective Vital Signs, Last 4 Hours Temp Pulse Resp BP Pulse Ox 10/26/18 11:42 97.7 F 68 16 159/87 94 General: Conversant, No Apparent Distress HEENT: Atraumatic, Normocephaly, Mucus Membranes Moist Neck: No JVD, Normal carotid pulses Cardiac: Reg Rate and Rhythm, Normal S1 and S2, No Murmur Lungs: Normal Breath Sounds, No Wheeze, Rales, Rhonchi Neuro: Alert and responsive, No focal deficits noted Abdomen: Soft, Non-Tender Skin: No rashes noted on visualized skin Musculoskeletal: No Chest Wall Tenderness Extremities: No Clubbing, No Cyanosis, No Edema, Normal Pulses Results 10/26/18 00:06 10/26/18 00:06 Lab Results 10/26/18 10/26/18 00:06 00:06 WBC 8.9 Hgb 11.6 L Hct 35.1 L Plt Count 180 Sodium 141 Potassium 3.7 Chloride 108 H Carbon Dioxide 24 BUN 20 Creatinine 1.17 Glucose 107 H Calcium 9.3 Active Medications Amlodipine Besylate (Norvasc) 5 mg PO DAILY [facility]; Protocol Stop: 04/26/19 14:24 Last Admin: 10/26/18 08:08 Dose: 5 mg Documented by: Aspirin (Aspirin) 81 mg PO DAILY [facility] Stop: 04/26/19 09:01 Last Admin: 10/26/18 08:07 Dose: 81 mg Documented by: Heparin Sodium (Porcine) (Heparin) 5,000 unit SQ Q12HCO [facility]; Protocol Stop: 04/27/19 18:01 Levothyroxine Sodium (Synthroid) 125 mcg PO 0630 [facility] Stop: 04/26/19 06:31 Last Admin: 10/26/18 05:54 Dose: 125 mcg Documented by: Loratadine (Claritin) 10 mg PO DAILY [facility] Stop: 04/26/19 09:01 Last Admin: 10/26/18 08:08 Dose: 10 mg Documented by: Melatonin (Melatonin) 3 mg PO HS [facility] Stop: 04/25/19 21:01 Last Admin: 10/25/18 20:13 Dose: 3 mg Documented by: Memantine (Namenda) 10 mg PO DAILY [facility] Stop: 04/26/19 09:01 Last Admin: 10/26/18 08:07 Dose: 10 mg Documented by: Ondansetron HCl (Zofran) 4 mg IVP Q8HR PRN PRN Reason: Nausea And Vomiting Stop: 04/25/19 13:13 Quetiapine Fumarate (Seroquel) 50 mg PO HS [facility]; Protocol Stop: 04/27/19 21:01 Rivastigmine Tartrate (Exelon) 1.5 mg PO BID [facility] Stop: 04/25/19 21:01 Last Admin: 10/26/18 08:08 Dose: 1.5 mg Documented by: Tamsulosin HCl (Flomax) 0.4 mg PO DAILY [facility]; Protocol Stop: 04/26/19 09:01 Last Admin: 10/26/18 08:07 Dose: 0.4 mg Documented by: - Imaging and Cardiology Chest Xray: report reviewed Echo: report reviewed - EKG Interpretation EKG results cardiology: other (Telemetry reviewed with average HR previous 12 hours noted to be 71, SR. PVCs, PACs noted.) Consult Discharge Plan - Plan Referrals: NONE,PCP [Primary Care Provider] -
[2018-10-26] MEDS: *HR* Heparin 5,000 UNIT/ML VIAL SQ SCH (17:52)
[2018-10-26] MEDS: Melatonin 3 MG TABLET PO SCH (20:55)
[2018-10-27] MEDS: *HR* Heparin 5,000 UNIT/ML VIAL SQ SCH ×2 (06:24→17:10)
[2018-10-27] MEDS: Aspirin 81 MG TAB.CHEW PO SCH (10:49)
[2018-10-27] MEDS: Loratadine 10 MG TABLET PO SCH (10:49)
[2018-10-27] MEDS: amLODIPine 5 MG TABLET PO SCH (10:49)
[2018-10-27] MEDS: Rivastigmine Tartrate (oral) 1.5 MG CAPSULE PO SCH ×2 (10:49→20:15)
--- NOTE | 2018-10-27 14:04 | Internal Med Progress Note ---
Hospitalist Progress Note - Encounter Date of Encounter: 10/27/18 Time of Encounter: 09:15 - Subjective Interval History: Patient was seen this morning. He slept overnight as per his mother. No new complaints. - Exam Vitals: Temp Pulse Resp BP Pulse Ox 97.9 F 70 18 161/85 93 10/27/18 08:03 10/27/18 08:03 10/27/18 08:03 10/27/18 08:03 10/27/18 08:03 Exam: General: Patient is alert, oriented 3, no distress. Head: Atraumatic, normal inspection, Eye: EOMI, PERRLA, no scleral icterus noted. ENT: Mucous membranes moist. Neck: Normal inspection, Respiratory: No respiratory distress, rhonchi, or wheezes noted. Cardiovascular: Regular rate and regular rhythm, S1 and S2 audible. No murmurs, rubs, or gallops. GI: Soft, nondistended, normal bowel sounds. Extremities:No joint swelling, pedal edema, or tenderness noted. Neurological: Alert, oriented 3, no asterxis, abnormal finger to nose exam. myclonus noted. Psychiatric: normal affect, normal mood. Skin: Dry, intact, warm. Normal color. No rashes. - Assessment and Plan (1) Delirium due to general medical condition Current Visit: Yes Status: Resolved (2) VI (acute kidney injury) Current Visit: Yes Status: Resolved (3) HTN (hypertension) Current Visit: Yes Status: Chronic (4) Lewy body dementia Current Visit: Yes Status: Chronic (5) Hypothyroidism Current Visit: Yes Status: Chronic (6) Autonomic instability Current Visit: Yes Status: Chronic (7) NSTEMI (non-ST elevated myocardial infarction) Current Visit: Yes Status: Resolved - Summary of Assessment and Plan Summary of Assessment and Plan: Mr. Schofield is a 67 year old male with history of HTN, and lewy body dementia, hypothyroidism, autonomic instability who was transferred to the hospital from [place] accompanied by his mother and sister due to confusion and u nresponsiveness. NSTEMI: Troponin peaked to 0.07 with flat pattern, chronic elevation as per previous records. DC heparin gtt, continue aspirin and lipitor. EKG no ischemic changes, Echo EF 55-60, mild TR, mild pHTN. cardiology is consulted, no plans for procedure. Encephalopathy: Already improved - DD: Likely related to underlying lewy body dementia and its cognition fluctuation and dehydration. UA,UCx and BCx are negative . Consult neurology. MRI of the brain is -. TSH is normal. Continue Seroquel as per neurology. lewy body dementia: Diagnosed 3 years ago, is to follow with a neurologist at [facility]. Continue memantine and added Exelon Autonomic instability: as per the family, his Bp is high when lay flat and low when sitting, likely related to lewy dementia. HTN: will hold lisinopril and start norvasc. VI: resolved, Stop IVF. Hypothyroidism: Continue Levothyroxine. DVT ppx: heparin sc. - Time Spent with Patient Total time spent is greater than 50% in coordination of care (as documented) at patient's floor/unit and/or counseling patient: Plan of Care Discussed with: family Internal Medicine: Result - Labs CBC & Chem 7: 10/26/18 00:06 10/26/18 00:06 - ABG Interpretation ABG results: PT/INR, D-dimer PT 13.8 Seconds (9.4-12.1) H 10/25/18 03:06 Consult Discharge Plan - Plan Referrals: NONE,PCP [Primary Care Provider] - (3) HTN (hypertension) Qualifiers: Hypertension type: essential hypertension Qualified Code(s): I10 - Essential (primary) hypertension (4) Lewy body dementia Qualifiers: Dementia behavioral disturbance: without behavioral disturbance Qualified Code(s): G31.83 - Dementia with Lewy bodies; F02.80 - Dementia in other diseases classified elsewhere without behavioral disturbance (5) Hypothyroidism Qualifiers: Hypothyroidism type: unspecified Qualified Code(s): E03.9 - Hypothyroidism, unspecified
[2018-10-27] MEDS: Melatonin 3 MG TABLET PO SCH (20:15)
[2018-10-28] MEDS: *HR* Heparin 5,000 UNIT/ML VIAL SQ SCH ×2 (06:02→16:24)
[2018-10-28] MEDS: Rivastigmine Tartrate (oral) 1.5 MG CAPSULE PO SCH ×2 (08:50→21:43)
[2018-10-28] MEDS: Loratadine 10 MG TABLET PO SCH (08:50)
[2018-10-28] MEDS: Aspirin 81 MG TAB.CHEW PO SCH (08:51)
[2018-10-28] MEDS: amLODIPine 5 MG TABLET PO SCH (08:51)
--- NOTE | 2018-10-28 11:31 | Internal Med Progress Note ---
Hospitalist Progress Note - Encounter Date of Encounter: 10/28/18 Time of Encounter: 11:29 - Subjective Interval History: Pt was seen and examined at bedside today. Patient reports that he is improving well. He denied any chest pain. He denied any confusion. He reports some weakness. Apart from this, he denied any acute issues and concerns at this t lul. - Exam Vitals: Temp Pulse Resp BP Pulse Ox 97.7 F 66 15 181/91 95 10/28/18 11:16 10/28/18 11:16 10/28/18 11:16 10/28/18 11:16 10/28/18 11:16 Exam: General: Patient is alert, oriented 3, no distress. Neck: Normal inspection, Respiratory: No respiratory distress, rhonchi, or wheezes noted. Cardiovascular: Regular rate and regular rhythm, S1 and S2 audible. No murmurs, rubs, or gallops. GI: Soft, nondistended, normal bowel sounds. Extremities:No joint swelling, pedal edema, or tenderness noted. Neurological: Alert, oriented 3, no asterxis, abnormal finger to nose exam. myclonus noted. Psychiatric: normal affect, normal mood. Skin: Dry, intact, warm. Normal color. No rashes. - Assessment and Plan (1) Lewy body dementia Current Visit: Yes Status: Chronic Assessment and Plan: Neurological consult. Patient is currently stable. Vik has improved. We will continue Seroquel, memantine, and Rivostigmine. (2) Delirium due to general medical condition Current Visit: Yes Status: Resolved Assessment and Plan: Has a history of Lewy Body dementia. Patient was hospitalized due to delirium. Neurology was consulted. Patient's currently on memantine, Seroquel, and Rivostigmine. She was improving well. Patient will likely get discharged tomorrow to [facility] facility. (3) VI (acute kidney injury) Current Visit: Yes Status: Resolved Assessment and Plan: VI has resolved. (4) NSTEMI (non-ST elevated myocardial infarction) Current Visit: Yes Status: Resolved Assessment and Plan: Likely type II due to demand ischemia. Cardiology consulted. Heparin drip was discontinued. (5) HTN (hypertension) Current Visit: Yes Status: Chronic Assessment and Plan: Continue Norvasc. (6) Hypothyroidism Current Visit: Yes Status: Chronic Assessment and Plan: Continue levothyroxine 125. DVT Prophylaxis: Subcutaneous heparin - Time Spent with Patient Total time spent is greater than 50% in coordination of care (as documented) at patient's floor/unit and/or counseling patient: 25 - 35 minutes Plan of Care Discussed with: patient Internal Medicine: Result - Labs CBC & Chem 7: 10/26/18 00:06 10/26/18 00:06 - ABG Interpretation ABG results: PT/INR, D-dimer PT 13.8 Seconds (9.4-12.1) H 10/25/18 03:06 Consult Discharge Plan - Plan Referrals: NONE,PCP [Primary Care Provider] - (1) Lewy body dementia Qualifiers: Dementia behavioral disturbance: without behavioral disturbance Qualified Code(s): G31.83 - Dementia with Lewy bodies; F02.80 - Dementia in other diseases classified elsewhere without behavioral disturbance (5) HTN (hypertension) Qualifiers: Hypertension type: essential hypertension Qualified Code(s): I10 - Essential (primary) hypertension (6) Hypothyroidism Qualifiers: Hypothyroidism type: unspecified Qualified Code(s): E03.9 - Hypothyroidism, unspecified
[2018-10-28] MEDS ORDERED: amLODIPine 5 MG TABLET PO STA (15:26)
[2018-10-28] MEDS: Melatonin 3 MG TABLET PO SCH (21:44)
[2018-10-29] MEDS ORDERED: Acetaminophen 325 MG TABLET PO ONE (04:52)
[2018-10-29] MEDS: *HR* Heparin 5,000 UNIT/ML VIAL SQ SCH (05:31)
[2018-10-29 06:17] LABS: Hematocrit 36.3 % (37.5-50.1); Hemoglobin 11.8 g/dL (12.9-16.9); Mean Corpuscular HGB Conc 32.5 g/dL (31.6-35.5); Mean Corpuscular Hemoglobin 29.4 pg (28.0-33.3); Mean Corpuscular Volume 90.3 fL (83.0-100.0); Mean Platelet Volume 9.8 fL (9.4-12.4); Platelet Count 185 K/mcL (140-400); Red Blood Count 4.02 M/mcL (4.19-5.50); White Blood Count 10.1 K/mcL (4.3-11.1)
[2018-10-29 06:35] LABS: BUN/Creatinine Ratio 17 (6-26); Blood Urea Nitrogen 19 mg/dL (8-23); Calcium 9.4 mg/dL (8.6-10.3); Carbon Dioxide 25 mEq/L (23-29); Chloride 104 mEq/L (98-107); Glucose 110 mg/dL (70-105); Osmolality,Calculated 295 (280-300); Sodium 141 mEq/L (136-145); eGFR For African Americans > 60 (> 60); eGFR For Non-African Americans > 60 (> 60)
[2018-10-29 07:51] VITALS: BP 122/78
--- NOTE | 2018-10-29 08:32 | Discharge Summary ---
- NOTES TO OUTPATIENT PROVIDER Notes to Outpatient Provider: Patient was hospitalized for confusion and unresponsiveness. Patient has a history of Lewy body dementia. Neurologic consult placed. Medication was adjusted. Pt was discharged to [facility]. Please follow up with patient in 1 week Orders not resulted at time of discharge: Pending orders 10/24/18 14:16 Blood Culture [Culture,Blood] [BC] Stat Estimated PT Needs at Discharge: SNF/ECF Date of Encounter: 10/29/18 Time of Encounter: 08:26 - Discharge Diagnosis (1) Lewy body dementia Priority: Primary Status: Chronic Qualifiers: Dementia behavioral disturbance: without behavioral disturbance Qualified Code(s): G31.83 - Dementia with Lewy bodies; F02.80 - Dementia in other diseases classified elsewhere without behavioral disturbance (2) Delirium due to general medical condition Priority: Secondary Status: Resolved (3) VI (acute kidney injury) Priority: Secondary Status: Resolved (4) NSTEMI (non-ST elevated myocardial infarction) Priority: Secondary Status: Resolved (5) HTN (hypertension) Priority: Secondary Status: Chronic Qualifiers: Hypertension type: essential hypertension Qualified Code(s): I10 - Essential (primary) hypertension (6) Hypothyroidism Priority: Secondary Status: Chronic Qualifiers: Hypothyroidism type: unspecified Qualified Code(s): E03.9 - Hypothyroidism, unspecified Hospital course: Mr. Schofield is a 67 year old male with past medical history of Lewy Body dementia presented to the emergency department with complaint of confusion and unresponsiveness. Due to his baseline dementia he has a waxing and waning course DELIRIUM. Neurology was consulted and patient was placed on memnatin, rivostigmine and Seroquel at bed time. Pt is getting discharged to rehab in stable condition. Discharge discussed with: patient, family, nurse, social work, case management, product/industry consultant - Time Spent with Patient Total time spent providing and/or coordinating discharge services: 35 Time spent: Greater than 30 minutes - Discharge Medications Prescriptions: New Carvedilol [Coreg] 3.125 mg PO BIDWM 7 Days #14 tablet Rivastigmine Tartrate (oral) [Exelon] 1.5 mg PO BID 7 Days #14 capsule Atorvastatin [Lipitor] 40 mg PO HS 7 Days #7 tablet amLODIPine [Norvasc] 10 mg PO DAILY 7 Days #7 tablet Quetiapine Fumarate [Seroquel] 50 mg PO HS 7 Days #7 Continued Memantine [Namenda] 10 mg PO DAILY Lisinopril [Zestril] 5 mg PO DAILY Calcium Carbonate/Vitamin D3 [Calcium 500-Vit D3 200 Caplet] 1 tab PO DAILY Levothyroxine [Synthroid] 125 mcg PO QAM Tamsulosin HCl [Flomax] 0.4 mg PO DAILY Melatonin [Melatin] 3 mg PO HS Loratadine [Claritin] 10 mg PO DAILY Home Medications: Calcium Carbonate/Vitamin D3 [Calcium 500-Vit D3 200 Caplet] 1 tab PO DAILY 10/29/17 [History] Levothyroxine [Synthroid] 125 mcg PO QAM 10/29/17 [History] Lisinopril [Zestril] 5 mg PO DAILY 10/29/17 [History] Memantine [Namenda] 10 mg PO DAILY 10/29/17 [History] Tamsulosin HCl [Flomax] 0.4 mg PO DAILY 10/29/17 [History] Loratadine [Claritin] 10 mg PO DAILY 10/24/18 [History] Melatonin [Melatin] 3 mg PO HS 10/24/18 [History] Atorvastatin [Lipitor] 40 mg PO HS 7 Days #7 tablet 10/29/18 [Rx] Carvedilol [Coreg] 3.125 mg PO BIDWM 7 Days #14 tablet 10/29/18 [Rx] Quetiapine Fumarate [Seroquel] 50 mg PO HS 7 Days #7 10/29/18 [Rx] Rivastigmine Tartrate (oral) [Exelon] 1.5 mg PO BID 7 Days #14 capsule 10/29/18 [Rx] amLODIPine [Norvasc] 10 mg PO DAILY 7 Days #7 tablet 10/29/18 [Rx] Allergies/Adverse Reactions: Allergy/AdvReac Type Severity Reaction Status Date / Time codeine Allergy Hives Verified 10/24/18 08:59 oxycodone Allergy Hives Verified 10/24/18 08:59 pentazocine [From Talwin] Allergy Hives Verified 10/24/18 08:59 Date of admission: 10/26/18 14:11 Primary care physician: PCP NONE Consults: 10/24/18 14:18 Consult to Neurology [CONS] Routine Consulting Provider: Neu[facility] Reason for Consult: confusion, had lewy body dementia, and quetionable overlap with shy drager syndrome?? Call Completed: No 10/24/18 14:23 Consult to Cardiology [CONS] Routine Comment: Consulting Provider: Cardiology Ron[facility] Reason for Consult: troponin elevation. Call Completed: No 10/26/18 02:02 Consult to Water Truck Driver [CONS] Routine Reason for SW Consult: Pt. lives with 85 yr old mother. 10/26/18 12:09 Consult to Occupational Therapy [CONS] Routine Comment: Evaluate, develop and implement POC Reason for Consult: evaluate the need for skilled placement Does patient have active BEDREST order?: No Is patient medically & hemodynamically stable?: Yes Consult to Physical Therapy [CONS] Routine Comment: Evaluate, develop and implement POC Reason for Consult: evaluate the need for skilled placement Does patient have active BEDREST order?: No Is patient medically & hemodynamically stable?: Yes Discharging clinician: Bret Coughlin - Constitutional Vitals: Temp Pulse Resp BP Pulse Ox 98.5 F 73 20 122/78 96 10/29/18 07:50 10/29/18 07:50 10/29/18 07:50 10/29/18 07:50 10/29/18 07:50 General appearance: Present: cooperative, A&O X 2 Exam: General: Patient is alert, oriented 3, no distress. Neck: Normal inspection, Respiratory: No respiratory distress, rhonchi, or wheezes noted. Cardiovascular: Regular rate and regular rhythm, S1 and S2 audible. No murmurs, rubs, or gallops. GI: Soft, nondistended, normal bowel sounds. Extremities:No joint swelling, pedal edema, or tenderness noted. Neurological: Alert, oriented 3, no asterxis, abnormal finger to nose exam. myclonus noted. Psychiatric: normal affect, normal mood. Skin: Dry, intact, warm. Normal color. No rashes. - Patient Status Disposition: Transfer SNF Condition: Good Overall status at discharge: patient is progressing back to baseline - Discharge Instructions Follow Up With: NONE,PCP [Primary Care Provider] - - Diet and Activity Activity: increase activity as tolerated Diet: advance to your usual diet, diabetic diet, low salt diet
--- NOTE | 2018-10-29 08:37 | Physician Discharge Referral ---
ExtendedCare Referral Info Transfer To: SNF Provider in Charge after Transfer: PCP - Diagnosis (1) Lewy body dementia Priority: Primary Status: Chronic (2) Delirium due to general medical condition Priority: Secondary Status: Resolved (3) VI (acute kidney injury) Priority: Secondary Status: Resolved (4) NSTEMI (non-ST elevated myocardial infarction) Priority: Secondary Status: Resolved (5) HTN (hypertension) Priority: Secondary Status: Chronic (6) Hypothyroidism Priority: Secondary Status: Chronic Prognosis: Good Aware of Diagnosis: Patient, Family Aware of Prognosis: Patient, Family - Transfer Medications Prescriptions: Carvedilol [Coreg] 3.125 mg PO BIDWM 7 Days #14 tablet Rivastigmine Tartrate (oral) [Exelon] 1.5 mg PO BID 7 Days #14 capsule Atorvastatin [Lipitor] 40 mg PO HS 7 Days #7 tablet amLODIPine [Norvasc] 10 mg PO DAILY 7 Days #7 tablet Quetiapine Fumarate [Seroquel] 50 mg PO HS 7 Days #7 Home Medications: Calcium Carbonate/Vitamin D3 [Calcium 500-Vit D3 200 Caplet] 1 tab PO DAILY 10/29/17 [History] Levothyroxine [Synthroid] 125 mcg PO QAM 10/29/17 [History] Lisinopril [Zestril] 5 mg PO DAILY 10/29/17 [History] Memantine [Namenda] 10 mg PO DAILY 10/29/17 [History] Tamsulosin HCl [Flomax] 0.4 mg PO DAILY 10/29/17 [History] Loratadine [Claritin] 10 mg PO DAILY 10/24/18 [History] Melatonin [Melatin] 3 mg PO HS 10/24/18 [History] Atorvastatin [Lipitor] 40 mg PO HS 7 Days #7 tablet 10/29/18 [Rx] Carvedilol [Coreg] 3.125 mg PO BIDWM 7 Days #14 tablet 10/29/18 [Rx] Quetiapine Fumarate [Seroquel] 50 mg PO HS 7 Days #7 10/29/18 [Rx] Rivastigmine Tartrate (oral) [Exelon] 1.5 mg PO BID 7 Days #14 capsule 10/29/18 [Rx] amLODIPine [Norvasc] 10 mg PO DAILY 7 Days #7 tablet 10/29/18 [Rx] Allergies/Adverse Reactions: Allergy/AdvReac Type Severity Reaction Status Date / Time codeine Allergy Hives Verified 10/24/18 08:59 oxycodone Allergy Hives Verified 10/24/18 08:59 pentazocine [From Talwin] Allergy Hives Verified 10/24/18 08:59 - Respiratory Orders Smoking Cessation: Smoking cessation has been advised. For more information, call the [place] Tobacco Quit Line at 9-847-WPFX-NOW. - Ancillary Orders May use pressure relief devices daily prn - Advance Directives Code Status: Full Code - Mobility Orders Ambulate - Rehabiliation Orders Rehab Orders: ROM Exercises, Evaluation for Physical Therapy, Evaluation for Occupational Therapy - Diet Orders No Added Salt (RIVAS), Cardiac CERTIFICATION: I certify that the transfer of the above named patient to an Extended Care Facility is necessary for the continuing treatment of the diagnosis listed. The above information is true and accurate reflection of patient's current condition. Confidential - Redisclosure prohibited without a patient's written consent.
[2018-10-29] MEDS ORDERED: amLODIPine 5 MG TABLET PO SCH (09:00)
[2018-10-29] MEDS: Aspirin 81 MG TAB.CHEW PO SCH (09:12)
[2018-10-29] MEDS: Rivastigmine Tartrate (oral) 1.5 MG CAPSULE PO SCH (09:12)
[2018-10-29] MEDS: Loratadine 10 MG TABLET PO SCH (09:13)
--- NOTE | 2018-11-02 09:24 | Electrocardiograph Report ---
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
== END 2018-10-29 16:09 | DRG 56 ==
LOC: 3BNU → SUATTDRO 13:08 → 3BNU 10-26 16:08
PROVIDERS: ADMIT Internal Medicine; ATTEND Family Medicine